=== PATIENT | female | born 1970 | race Two or more races ===

== ENCOUNTER 2017-03-17 16:41 | Emergency (ER) | payer MEDICAID ==
[~2017-03-17] VITALS: Ht 162.6 cm; Wt 72.6 kg
[2017-03-17 17:25] LABS: Basophils # (auto) 0 uL; Basophils % (auto) 0.2 % (0.0-2.0); CONDITION Y; DEFINITIVE SEE PRINTOUT; Eosinophils # (auto) 0.2 uL; Eosinophils % (auto) 1.9 % (0.0-7.0); Hematocrit 30.9 % (36.0-46.0); Hemoglobin 10.3 g/dL (12.2-16.2); Lymphocytes # (auto) 1.5 uL; Lymphocytes % (auto) 13.7 % (10.0-50.0); Mean Corpuscular Hemoglobin 26.3 pg (28.0-32.0); Mean Corpuscular Hgb Conc. 33.4 g/dL (32.0-36.0); Mean Corpuscular Volume 78.7 fL (80.0-100.0); Mean Platelet Volume 7.4 fL (6.9-10.8); Monocytes # (auto) 0.3 uL; Monocytes % (auto) 2.7 % (0.0-12.0); Neutrophils # (auto) 8.9 uL; Neutrophils % (auto) 81.5 % (37.0-80.0); Platelet Count (auto) 568 10^3/uL (140-450); White Blood Cell 10.9 10^3/uL (4.4-10.8)
[2017-03-17 17:41] LABS: Albumin 3.4 g/dL (3.4-5.0); BUN/Creatinine Ratio 13.2; Bilirubin, Total 0.3 mg/dL (0.2-1.0); Calcium 8.4 mg/dL (8.5-10.1); Potassium 3.3 mmol/L (3.5-5.1); Total Protein 7.2 g/dL (6.4-8.2)
[2017-03-17 18:42] LABS: Urine Bilirubin Negative (Negative); Urine Blood 1+ /uL (Negative); Urine Color Yellow (Yellow); Urine Glucose Normal (Normal); Urine Ketone Negative (Negative); Urine Mucus FEW (None Seen); Urine Nitrite Negative (Negative); Urine RBC 2 /hpf (0 - 4); Urine Squamous Epithelial Cell FEW /hpf (<5); Urine Urobilinogen Normal (Negative)
[2017-03-18 02:47] VITALS: BP 114/70
== END 2017-03-18 02:51 | disposition home or self-care (01) ==
LOC: EDBD 16:41 → ER 16:41
DX: R55 Syncope and collapse (principal); E87.6 Hypokalemia; B69.9 Cysticercosis, unspecified
CPT/HCPCS: 36415; 70450; 71010; 80053; 80320; 81001; 84484; 84702; 85025

== ENCOUNTER 2018-04-20 01:09 | Emergency (ER) | payer MEDICAID ==
[~2018-04-20] VITALS: Ht 154.9 cm; Wt 86.2 kg
[2018-04-20 01:53] LABS: Basophils # (auto) 0.1 uL; Eosinophils # (auto) 0.2 uL; Hemoglobin 11.4 g/dL (12.2-16.2); Monocytes # (auto) 0.6 uL
[2018-04-20 01:54] LABS: Basophils % (auto) 0.6 % (0.0-2.0); Eosinophils % (auto) 1.4 % (0.0-7.0); Hematocrit 34.8 % (36.0-46.0); Lymphocytes % (auto) 13.9 % (10.0-50.0); Mean Corpuscular Hemoglobin 28.8 pg (28.0-32.0); Mean Corpuscular Hgb Conc. 32.9 g/dL (32.0-36.0); Mean Corpuscular Volume 87.6 fL (80.0-100.0); Monocytes % (auto) 4.1 % (0.0-12.0); Neutrophils # (auto) 11.7 uL; Nucleated Red Blood Cells % 0.1 %; Platelet Count (auto) 480 10^3/uL (140-450); Red Blood Cells 3.97 10^6/uL (4.0-5.20); Red Cell Distribution Width 18.5 % (11.8-14.3); White Blood Cell 14.7 10^3/uL (4.4-10.8)
[2018-04-20 02:11] LABS: Albumin 3.5 g/dL (3.4-5.0); Potassium 3.7 mmol/L (3.5-5.1)
[2018-04-20 02:14] LABS: Bilirubin, Total 0.5 mg/dL (0.2-1.0); Total Protein 7.2 g/dL (6.4-8.2)
[2018-04-20 02:29] LABS: Urine Specific Gravity 1.002 (1.001-1.035)
[2018-04-20 02:30] LABS: Urine Blood 1+ /uL (Negative); Urine WBC 57 /hpf (0 - 5)
[2018-04-20 02:32] LABS: Urine Bacteria FEW /hpf (None Seen); Urine WBC Clumps 3 /hpf (None Seen)
[2018-04-20 02:34] LABS: Urine Mucus FEW (None Seen)
[2018-04-20 04:10] VITALS: BP 116/69
[2018-04-20] MEDS ORDERED: PHENAZOPYRIDINE HCL 100 MG TAB PO ONE (04:15)
[2018-04-20] MEDS ORDERED: LEVOFLOXACIN 250 MG TAB PO ONE (04:15)
== END 2018-04-20 05:29 | disposition home or self-care (01) ==
LOC: ER 01:09
DX: N39.0 Urinary tract infection, site not specified (principal); Z88.5 Allergy status to narcotic agent
CPT/HCPCS: 36415; 74176; 80053; 81001; 81025; 82150; 83690; 85025

== ENCOUNTER 2021-09-18 01:53 | Emergency (ER) | payer MEDICAID ==
[~2021-09-18] VITALS: Ht 154.9 cm; Wt 81.6 kg
[2021-09-18 02:54] LABS: Basophils # (auto) 0.1 10 ^3/uL (0-0.2); Basophils % (auto) 0.2 % (0.0-2.0); Eosinophils # (auto) 0.1 10 ^3/uL (0-0.8); Eosinophils % (auto) 0.6 % (0.0-7.0); Hematocrit 38.9 % (36.0-46.0); Hemoglobin 12.8 g/dL (12.2-16.2); Lymphocytes # (auto) 1.5 10 ^3/uL (0.4-5.4); Lymphocytes % (auto) 6.2 % (10.0-50.0); Mean Corpuscular Hemoglobin 27.4 pg (28.0-32.0); Mean Corpuscular Volume 83.1 fL (80.0-100.0); Monocytes % (auto) 4.4 % (0.0-12.0); Neutrophils # (auto) 20.7 10 ^3/uL (1.6-8.6); Neutrophils % (auto) 88.6 % (37.0-80.0); Nucleated Red Blood Cells % 0.2 %; Red Blood Cells 4.68 10^6/uL (4.0-5.20); Red Cell Distribution Width 15.4 % (11.8-14.3); White Blood Cell 23.4 10^3/uL (4.4-10.8)
[2021-09-18] MEDS ORDERED: MORPHINE SULFATE 4 MG/ML SYR/VIAL IV ONE (03:00)
[2021-09-18] MEDS ORDERED: SODIUM CHLORIDE 0.9% 1,000 ML IV ONE ×2 (03:00)
[2021-09-18] MEDS ORDERED: ONDANSETRON HCL 4 MG/2 ML VIAL IV ONE (03:00)
[2021-09-18 03:06] LABS: Albumin 3.2 g/dL (3.4-5.0); Calcium 8.5 mg/dL (8.5-10.1); Potassium 3.9 mmol/L (3.5-5.1)
[2021-09-18 03:09] LABS: Bilirubin, Total 0.4 mg/dL (0.2-1.0); Total Protein 7.1 g/dL (6.4-8.2)
[2021-09-18 03:47] VITALS: BP 104/57
[2021-09-18 04:09] LABS: Urine Bacteria NONE SEEN /hpf (None Seen); Urine Blood 2+ /uL (Negative); Urine Mucus FEW (None Seen); Urine Specific Gravity 1.029 (1.001-1.035); Urine WBC 11 /hpf (0 - 5)
[2021-09-18] MEDS ORDERED: DICY10CA PO (06:23)
[2021-09-18] MEDS ORDERED: ONDA-144 PO (06:23)
== END 2021-09-18 06:24 | disposition home or self-care (01) ==
LOC: EDBD 01:53 → ER 01:56
DX: K52.9 Noninfective gastroenteritis and colitis, unspecified (principal); K21.9 Gastro-esophageal reflux disease without esophagitis; Z32.02 Encounter for pregnancy test, result negative; Z88.6 Allergy status to analgesic agent
CPT/HCPCS: 36415; 74176; 80053; 81001; 81025; 83690; 85025; 85048; 87045; 87427; 96361; 96374; 96375; 99284; J2270; J2405; J7030

== ENCOUNTER 2022-07-28 15:03 | Emergency (ER) | payer MEDICAID ==
[~2022-07-28 15:03] MED LIST: DICY10CA PO; ONDA-144 PO
[2022-07-28] MEDS ORDERED: SODIUM CHLORIDE 0.9% 1,000 ML IV ONE (15:15)
[2022-07-28] MEDS ORDERED: MECL1TAB42 PO (15:53)
== END 2022-07-28 17:00 | disposition left against medical advice (07) ==
LOC: EDBD 15:03 → ER 15:04
DX: R42 Dizziness and giddiness (principal); F41.9 Anxiety disorder, unspecified; F32.9 Major depressive disorder, single episode, unspecified; K21.9 Gastro-esophageal reflux disease without esophagitis; Z88.5 Allergy status to narcotic agent

== ENCOUNTER 2023-06-23 14:57 | Emergency (ER) | payer MEDICAID ==
[~2023-06-23] VITALS: Ht 157.5 cm; Wt 87.3 kg
[~2023-06-23 14:57] MED LIST changes: +MECL1TAB42 PO
[2023-06-23 15:34] LABS: Basophils # (auto) 0 10 ^3/uL (0-0.2); Basophils % (auto) 0.2 % (0.0-2.0); Eosinophils # (auto) 0.3 10 ^3/uL (0-0.8); Eosinophils % (auto) 3.1 % (0.0-7.0); Hematocrit 37.1 % (36.0-46.0); Hemoglobin 12.1 g/dL (12.2-16.2); Lymphocytes # (auto) 2.3 10 ^3/uL (0.4-5.4); Lymphocytes % (auto) 24.4 % (10.0-50.0); Mean Corpuscular Hemoglobin 27.6 pg (28.0-32.0); Mean Corpuscular Hgb Conc. 32.6 g/dL (32.0-36.0); Mean Corpuscular Volume 84.7 fL (80.0-100.0); Monocytes # (auto) 0.5 10 ^3/uL (0-1.3); Monocytes % (auto) 5.4 % (0.0-12.0); Neutrophils # (auto) 6.4 10 ^3/uL (1.6-8.6); Neutrophils % (auto) 66.9 % (37.0-80.0); Nucleated Red Blood Cells % 0.3 %; Red Blood Cells 4.39 10^6/uL (4.0-5.20); Red Cell Distribution Width 15.7 % (11.8-14.3); White Blood Cell 9.5 10^3/uL (4.4-10.8)
[2023-06-23 15:52] LABS: Alanine Aminotransferase 44 U/L (7-40); Albumin 3.9 g/dL (3.2-4.8); Alkaline Phosphatase 163 U/L (46-116); Anion Gap 6 (5-15); Aspartate Aminotransferase 25 U/L (13-40); BUN/Creatinine Ratio 15.9 (10.0-20.0); Bilirubin, Total 0.4 mg/dL (0.2-1.0); Blood Urea Nitrogen 11 mg/dL (9-23); Calcium 8.9 mg/dL (8.5-10.1); Carbon Dioxide 28 mmol/L (20-30); Chloride 108 mmol/L (98-107); Glucose 123 mg/dL (74-106); Potassium 4.2 mmol/L (3.5-5.1); Sodium 142 mmol/L (136-145)
[2023-06-23] MEDS ORDERED: IBUPROFEN 400 MG TAB PO ONE (18:30)
[2023-06-23 18:48] VITALS: BP 136/70; PULSE 86; RESP 18; TEMP 98.1; O2SAT 100
== END 2023-06-23 18:49 | disposition home or self-care (01) ==
LOC: ER 14:57
DX: R07.89 Other chest pain (principal); J06.9 Acute upper respiratory infection, unspecified; K21.9 Gastro-esophageal reflux disease without esophagitis
CPT/HCPCS: 36415; 71045; 80053; 83880; 84484; 85025; 93005

== ENCOUNTER 2025-02-21 19:36 | Emergency (ER) | payer MEDICAID, OTHER ==
[~2025-02-21] VITALS: Ht 154.9 cm; Wt 85.4 kg
--- NOTE | 2025-02-21 19:56 | ECG ---
[facility] Test Date: 2025-02-21 Test Time: 19:50:24 Pat Name: BROOKE COE Department: [facility] ED Patient ID: [id number] Room: Gender: F Senior Payroll Specialist: christiano : 1970 Requested By: EMERGENCY EMERGENCY Order Number: [id number] Reading MD: Measurements Intervals [place] Rate: 75 P: 38 AK: 150 QRS: 26 QRSD: 100 T: 58 QT: 411 QTc: 460 Interpretive Statements Sinus rhythm Low voltage, precordial leads Please click the below link to view image of tracing.
--- NOTE | 2025-02-21 20:12 | ED.PDOC ---
HPI (NEURO) HPI Comments 54 y/o obese F is BIBA with c/c dizziness and headache. History of dizziness, syncope, vertigo, and hypotension. Patient endorses on having 20x minute episode of dizziness and developing pain to the posterior side of her head after returning with her family from rollerblading and drinking a couple of beers, earlier, today. Patient states on falling while rollerblading and scraping her left elbow and forearm but is unsure on whether she hit her head then and denies any lost of consciousness. Patient admits to having similar symptoms in the past in addition to passing out 5 years ago. No recent additional prior injuries, sick contacts, ailments, or pertinent history endorsed. Patient denies having any facial droop, speech deficits, weakness, lightheadedness, or further associated symptoms. Per EMS report, vitals were commented to have been stable and within normal limits. Blood glucose of 110 on scene. 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 Hx Family History Family History: No family hx of Heart greg, No family hx of HTN Social History Smoker: Non-Smoker Alcohol: Occasionally Drugs: Denies Drug Use Lives In: Home All Other Systems: Reviewed and Negative (Comprehensive review of systems are negative unless otherwise stated in HPI) Physical Exam General Appearance: No Apparent Distress, Obese HEENT: Normal ENT Inspection, Pharynx Normal, TMs Normal, Other (no nystagmus, eye movement reproduces dizziness) Neck: Full Range of Motion, Non-Tender, Normal, Normal Inspection Respiratory: Chest Non-Tender, Lungs Clear, No Accessory Muscle Use, No Respiratory Distress, Normal Breath Sounds Cardiovascular: No Edema, No JVD, No Murmur, No Gallop, Normal Peripheral Pulses, Regular Rate/Rhythm Breast Exam: Deferred Gastrointestinal: No Organomegaly, Non Tender, No Pulsatile Mass, Normal Bowel Sounds, Soft Genitalia: Deferred Pelvic: Deferred Rectal: Deferred Extremities: No calf tenderness, Normal capillary refill, Normal range of motion, Non-tender, No pedal edema, Other (bruise and abrasion to left forearm ) Musculoskeletal : Apperance: Normal Neurologic: Alert, flight/transport nurse II-XII nml as Tested, No Motor Deficits, Normal Affect, Normal Mood, No Sensory Deficits, Other (no neurological deficits, facial droop, or speech deficits ) Cerebellar Function: Normal Reflexes: Normal Skin: Bruises (left forearm), Dry, Normal Color, Warm, Wounds (abrasion wound to left forearm) Lymphatic: No Adenopathy Was a procedure done? Was a procedure done?: No Differential Diagnosis (SZ) Seizure: N/A CVA: Other (N/A) General Weakness: N/A Headache: Cluster, Migraine, Closed Head Injury, CVA, Epidural Hemorrhage, Intracerebral Hemorrhage, Subarachnoid Hemorrhage, Subdural Hemorrhage, Men ingitis, Post-Traumatic, Sinusitis, Trigeminal Neuralgia X-Ray, Labs, Meds, VS Vital Signs Date Time Temp Pulse Resp B/P (MAP) Pulse Ox O2 Delivery O2 Flow Rate FiO2 02/21/25 19:50 75 02/21/25 19:50 98.7 82 16 117/65 95 98.7 Lab Test 02/21/25 20:40 Range/Units Urine Color Colorless Yellow Urine Clarity Clear Clear Urine pH 5.5 5.0-9.0 Urine Specific [place] 1.006 1.001-1.035 Urine Protein Negative Negative Urine Ketones Negative Negative Urine Blood 1+ H Negative /uL Urine Nitrite Negative Negative Urine Bilirubin Negative Negative Urine Urobilinogen Normal Negative mg/dL Urine Leukocyte Esterase Negative Negative /uL Urine RBC 1 0 - 4 /hpf Urine Microscopic WBC 1 0-5 /HPF Urine Squamous Epithelial Cells Few <5 /hpf Urine Bacteria Few H None Seen /hpf Urine Glucose Normal Normal mg/dL Time of 1ST Reevaluation: 20:10 Reevaluation 1ST: Unchanged Patient Education/Counseling: Diagnosis, Treatment, Prognosis, Need For Follow Up Family Education/Counseling: Diagnosis, Treatment, Prognosis, Need For Follow Up Comments Although patient has suffered a fall while skating, she could not recall whether she hit her head or not. The CAT scan was done which was negative. She has had a history of vertigo per medical record review. Her symptoms are improved now her left elbow and forearm is worried unremarkable there is a contusion but there is no fracture or dislocation. Patient is discharged with a diagnosis of vertigo and left arm contusion Departure 1 Departure Time of Disposition: 21:41 Impression: Primary Impression: Vertigo Additional Impression: Arm contusion Qualified Codes: S40.022A - Contusion of left upper arm, initial encounter Disposition: HOME / SELF CARE / HOMELESS Condition: Good e-Prescriptions Alprazolam (Xanax) 0.25 Mg Tb 1 TAB PO BIDP PRN for 3 Days, #6 TAB Prov: ADDIE HOOD MD 02/21/25 Ondansetron Odt 4MG Tab (ZOFRAN PO) 4 Mg Tb 4 MG PO Q6HP PRN for 3 Days, #12 TAB ODT TAB-DISSOLVE IN MOUTH, THEN SWALLOW Prov: ADDIE HOOD MD 02/21/25 Meclizine HCl (Meclizine 25) 25 Mg Tab 25 MG PO Q4HP PRN for 3 Days, #15 TAB Prov: ADDIE HOOD MD 02/21/25 Ibuprofen Micronized (MOTRIN TABLET) 600 Mg Tb 600 MG PO TID PRN, #40 TAB *Black box warning-NSAIDS can increase risk of MT & hypertension, GI irritation, ulceration, bleed, perferation. Do not use post cardiac surgery. Use short duration/lowest effective dose. Prov: ADDIE HOOD MD 02/21/25 Discharged With: Self, Spouse Critical Care Note Critical Care Time?: No Stability Stability form required: No Heart Score Heart Score: Heart Score Response (Comments) Value History N/A 0 EKG N/A 0 Age N/A 0 Risk Factors N/A 0 Troponin N/A 0 Total 0 I personally scribed for ADDIE HOOD MD ([email or web address]) on 02/21/25 at 20:12. Electronically submitted by Nikolai Flores ([email or web address]). ADDIE HOOD MD Feb 21, 2025 20:12
--- NOTE | 2025-02-21 20:44 | DVH ---
CLINICAL INDICATION: injury TECHNIQUE: 3 radiographic views of the left elbow were obtained. Comparison: None FINDINGS/IMPRESSION: Bony alignment is normal. No fracture or dislocation. No joint effusion
--- NOTE | 2025-02-21 20:44 | DVH ---
CLINICAL INDICATION: injury TECHNIQUE: 2 views XY L FOREARM XRAY Comparison: None FINDINGS: No acute fracture. The elbow and wrist joints are partially assessed but appear normally aligned, wit hout significant degenerative change or obvious elbow effusion. Mild soft tissue swelling of the medi al proximal forearm. Antecubital vascular catheter. IMPRESSION: 1. Proximal soft tissue swelling without acute osseous finding of the left forearm.
--- NOTE | 2025-02-21 20:49 | DVH ---
Procedure: CT HEAD WITHOUT CONTRAST Study Date and Requested Time: 02/21/2025 08:11 PM History: fall, headache, dizzy Comparison: None Dose: CTDI: 51.55 mGy DLP: 723.48 mGycm Technique: Multiplanar images obtained through the brain without intravenous contrast. Findings: Normal brain volume and formation. Specific Focus of calcification of the right temporal lobe. No hemorrhages, masses, mass effect, midline shift, herniation or cytotoxic edema following a large v ascular territory. No intra-axial or extra-axial fluid collections. No evidence of hydrocephalus. The basal cisterns are patent. The pituitary gland, sella and parasellar regions are unremarkable. The cerebellar tonsils are in nor mal position. The cerebellum is unremarkable. The orbits and globes are unremarkable. The paranasal sinuses and mastoids are clear. There are no wo rrisome calvarial lesions. Impression: No evidence of acute intracranial abnormality.
[2025-02-21 21:07] LABS: Urine Protein, UAD Negative (Negative)
[2025-02-21] MEDS ORDERED: MECL1TAB42 PO (21:44)
[2025-02-21] MEDS ORDERED: IBU600T PO (21:44)
[2025-02-21] MEDS ORDERED: ZOFR4T PO (21:44)
[2025-02-21] MEDS ORDERED: ALPR0.25 PO (21:44)
[2025-02-21] MEDS: ONDANSETRON ODT 4 MG TAB PO ONE (22:11)
[2025-02-21] MEDS: ALPRAZolam 0.25 MG TAB PO ONE (22:11)
[2025-02-21] MEDS: MECLIZINE HCL 25 MG TAB PO ONE (22:12)
[2025-02-21 22:21] VITALS: BP 124/71; PULSE 87; RESP 16; TEMP 98; O2SAT 96
== END 2025-02-21 22:24 | disposition home or self-care (01) ==
LOC: ER 19:36 → EDBD 19:36 → ER 22:24
DX: S50.12XA Contusion of left forearm, initial encounter (principal); F41.9 Anxiety disorder, unspecified; F32.A Depression, unspecified; K21.9 Gastro-esophageal reflux disease without esophagitis; I95.9 Hypotension, unspecified; W18.39XA Other fall on same level, initial encounter; Y93.51 Activity, roller skating (inline) and skateboarding; Y92.89 Other specified places as the place of occurrence of the external cause; Y99.8 Other external cause status
CPT/HCPCS: 70450; 73080; 73090; 81001; 82947; 93005; 99285; J8597; Q0162